=== PATIENT | female | born 1985 ===

== ENCOUNTER 2016-05-27 16:31 | Emergency (ER) | payer MEDICAID ==
[2016-05-27 17:01] VITALS: BMI 28.3
[2016-05-27 17:07] VITALS: TEMP 97.9
--- NOTE | 2016-05-27 17:25 | C.PDOC ---
History Of Present Illness 31 yr old female with PMHx of anxiety and depression, presents to the ER stating 3 days ago she lost her bag and in the bag she had her lexapro and xanax and here requesting refill of her medications. Patient s tates she has not slept in 2-3 days. Patient denies fever, chest pain, SOB, nausea, vomiting, diarrhea, weakness or numbness. Time Seen by Provider: 05/27/16 18:00 Chief Complaint (Nursing): Med Refill History Per: Patient History/Exam Limitations: no limitations Onset/Duration Of Symptoms: Days (3) Current Symptoms Are (Timing): Still Present Recent travel outside of the [place]: No Past Medical History Reviewed: Historical Data, Nursing Documentation, Vital Signs Vital Signs: Last Vital Signs Temp 97.9 F 05/27/16 17:01 Pulse 99 H 05/27/16 17:01 Resp 20 05/27/16 17:01 BP 121/81 05/27/16 17:01 Pulse Ox 99 05/27/16 18:10 - Medical History PMH: Anxiety, Back Problems, Depression Family History: States: No Known Family Hx - Social History Hx Alcohol Use: No Hx Substance Use: No - Immunization History Hx Tetanus Toxoid Vaccination: No Hx Influenza Vaccination: No Hx Pneumococcal Vaccination: No Review Of Systems Except As Marked, All Systems Reviewed And Found Negative. Constitutional: Negative for: Fever Cardiovascular: Negative for: Chest Pain Respiratory: Negative for: Shortness of Breath Gastrointestinal: Negative for: Nausea, Vomiting, Diarrhea Neurological: Negative for: Weakness, Numbness Psych: Positive for: Anxiety, Depression Physical Exam - Physical Exam Appears: Non-toxic, No Acute Distress Skin: Warm, Dry, No Rash Head: Atraumatic, Normacephalic Oral Mucosa: Moist Chest: Symmetrical, No Tenderness Cardiovascular: Rhythm Regular, No Murmur Extremity: Normal ROM, No Swelling Neurological/Psych: Oriented x3, Normal Speech, Normal Motor ED Course And Treatment O2 Sat by Pulse Oximetry: 99 Disposition Counseled Patient/Family Regarding: Diagnosis, Need For Followup - Disposition Disposition: HOME/ ROUTINE Disposition Time: 18:13 Condition: STABLE Instructions: Anxiety (ED) Forms: General Discharge Instructions - POA Present On Arrival: None - Clinical Impression Clinical Impression: Anxiety - Scribe Statement The provider has reviewed the documentation as recorded by the Kathy Olsen Provider Attestation: All medical record entries made by the Kathy were at my direction and personally dictated by me. I have reviewed the chart and agree that the record accurately reflects my personal performance of the history, physical exam, medical decision making, and the department course for this patient. I have also personally directed, reviewed, and agree with the discharge instructions and disposition.
[2016-05-27 18:48] VITALS: BP 124/75; PULSE 89; RESP 18; O2SAT 98
== END 2016-05-27 18:49 | disposition home or self-care (01) ==
LOC: C.ER 16:31
DX: F41.9 Anxiety disorder, unspecified (principal)

== ENCOUNTER 2016-12-21 11:54 | Emergency (ER) | payer MEDICAID ==
[2016-12-21 11:54] VITALS: BMI 28.3
[2016-12-21 12:15] VITALS: O2SAT 100
--- NOTE | 2016-12-21 12:31 | C.PDOC ---
History Of Present Illness 31 year old female presents to the ED for evaluation of left toe injury which she sustained last night. Patient states she accidentally struck her toe on a wooden table last night. Patient complains of pain, bruising and swelling to the area. Patient denies any other associated injuries. CO L 4 TOE INJURY LAST NIGHT. PS ACCID STRUCK TOE ON WOODEN TABLE LAST NIGHT. CO PAIN, BRUISING, SWELL TO AREA. DENIES OTHER ASSOC INJURY EXAM MILD DIST EXT L FOOT +BRUISING W TEND TOP 4TH MT JOINT. NO GROSS DEFORM. REMAINDER FOOT, ANKLE NONTEND SKIN INTACT NO ERYTHEMA Time Seen by Provider: 12/21/16 12:27 Chief Complaint (Nursing): Trauma History Per: Patient History/Exam Limitations: no limitations Onset/Duration Of Symptoms: Hrs Current Symptoms Are (Timing): Still Present Additional History Per: Patient - Ankle/Foot Description Of Injury: Struck With Object Past Medical History Reviewed: Historical Data, Nursing Documentation, Vital Signs Vital Signs: Last Vital Signs Temp 97.9 F 12/21/16 14:08 Pulse 60 12/21/16 14:08 Resp 18 12/21/16 14:08 BP 99/60 L 12/21/16 14:08 Pulse Ox 100 12/21/16 23:39 - Medical History PMH: Anxiety, Back Problems, Depression, Migraine Surgical History: No Surg Hx Family History: States: Unknown Family Hx - Social History Hx Alcohol Use: No Hx Substance Use: No - Immunization History Hx Tetanus Toxoid Vaccination: No Hx Influenza Vaccination: No Hx Pneumococcal Vaccination: No Review Of Systems Skin: Positive for: Other (pain, bruising and swelling to left 4th toe ) Neurological: Negative for: Weakness, Numbness Physical Exam - Physical Exam Appears: Non-toxic, Other (in mild distress ) Skin: Warm, Dry, Ecchymosis (to left 4th toe ), Other (skin intact, no erythema ) Extremity: Normal ROM, Tenderness (to left 4th metatarsal joint ), Capillary Refill (less than 2 seconds ), No Deformity, Other (ankle nontender ) Neurological/Psych: Oriented x3, Normal Speech, Normal Cognition Gait: Steady ED Course And Treatment O2 Sat by Pulse Oximetry: 100 (on RA) Pulse Ox Interpretation: Normal - Other Rad L FOOT X-Ray: Interpreted by Me (4 PROX PHALANGE FX) Progress Note: left foot XR ordered and reviewed. Tylenol PO administered. Progress - Re-Evaluation Re-evaluation Note: 12/21/16 13:11 SP PODIATRY EVAL: SPLINT, DRESSING APPLIED BY DR SAVANNA AGOSTO OUTPT - Data Reviewed Data Reviewed: Diagnostic imaging Disposition Counseled Patient/Family Regarding: Studies Performed, Diagnosis, Need For Followup - Disposition Referrals: [facility] [Outside] [facility] [Outside] Disposition: HOME/ ROUTINE Disposition Time: 13:12 Condition: IMPROVED Additional Instructions: FOLLOW UP WITH PODIATRY INSTRUCTED Instructions: Toe Fracture (ED) Forms: [employer] (Welsh), Work Excuse - Clinical Impression Clinical Impression: Toe fracture - Scribe Statement The provider has reviewed the documentation as recorded by the Scribe (Barbara Rome) Provider Attestation: All medical record entries made by the Scribe were at my direction and personally dictated by me. I have reviewed the chart and agree that the record accurately reflects my personal performance of the history, physical exam, medical decision making, and the department course for this patient. I have also personally directed, reviewed, and agree with the discharge instructions and disposition.
--- NOTE | 2016-12-21 13:03 | CP.PCM.CON ---
History of Present Illness - History of Present Illness History of Present Illness: 31 yo female patient with PMHx of herniated disk and neuropathy presents with a contusion injury to her Left foot 4th digit. She states that she bumped her Left foot against wooden furniture this morning, and is experiencing sharp pain to Left 4th toe especially when bearing weight. She has not tried any medication for the pain. Patient states that she is not working at the moment and will be resting at home. Patient denies of any other pedal complaints. Patient denies of any N/V/F/C or SOB today Review of Systems - Constitutional Constitutional: As Per HPI Past Patient History - Past Social History Smoking Status: Former Smoker - NEUROLOGICAL Hx Migraine: Yes - MUSCULOSKELETAL/RHEUMATOLOGICAL Hx Herniated Disk: Yes - PSYCHIATRIC Hx Anxiety: Yes Hx Depression: Yes Hx Substance Use: No - SURGICAL HISTORY Hx Surgeries: Yes Hx Section: Yes (x1) Other/Comment: Ovaryan cyst removal - ANESTHESIA Hx Anesthesia: Yes Hx Anesthesia Reactions: No Meds Allergies/Adverse Reactions: Allergies Allergy/AdvReac Type Severity Reaction Status Date / Time ketorolac tromethamine Allergy Severe RASH Verified 12/21/16 12:15 [From Toradol] tramadol Allergy Severe ITCHING Verified 12/21/16 12:15 latex Allergy Intermediate Verified 12/21/16 12:15 Physical Exam - Constitutional Appears: Well, Non-toxic, No Acute Distress - Head Exam Head Exam: ATRAUMATIC - Extremities Exam Additional comments: Left lower extremity exam DERM: No open wound noted. No interdigital maceration noted to bilateral. Mild erythema noted. No ecchymosis noted. ORTHO: Pain on palpation to Left foot 4th digit. Patient cannot bear weight secondary to pain VASC: Palpable DP and PT noted 2/4 bilaterally. 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 less than 3 seconds to all digits NEURO: Gross sensation intact - Neurological Exam Neurological exam: Alert, Oriented x3 - Psychiatric Exam Psychiatric exam: Normal Affect, Normal Mood - Skin Skin Exam: Normal Color, Warm Results - Vital Signs Recent Vital Signs: Last Vital Signs Temp 97.2 F L 12/21/16 12:10 Pulse 84 12/21/16 12:10 Resp 20 12/21/16 12:10 BP 95/60 L 12/21/16 12:10 Pulse Ox 100 12/21/16 12:50 Assessment & Plan - Assessment and Plan (Free Text) Assessment: 31 yo female patient presents with Left foot 4th digit proximal phalanx fracture Plan: Patient was seen, evaluated and treated in ED discussed in detail with attending DR. Dalal Xray of Left foot reveals closed, non-displaced, complete fracture of 4th digit proximal phalanx Left foot dressed with amairani splinting 4th digit with 3rd digit Patient advised to keep the dressing clean dry and intact until her clinic visit Patient was given surgical shoe, advised to walk to heel as tolerated Patient was advised to follow up at [facility] podiatry clinic with Dr. Dalal Patient was given Rx for Xray to take at the time of visit to clinic
[2016-12-21 14:09] VITALS: BP 99/60; PULSE 60; RESP 18; TEMP 97.9
--- NOTE | 2016-12-21 15:54 | RAD ---
PROCEDURE: Left Foot Radiographs. HISTORY: TRAUMA COMPARISON: None. FINDINGS: BONES: Oblique nondisplaced fracture of the 4th proximal phalangeal diaphysis. No additional fracture appreciated. There is mild comminution. No other fracture is appreciated. JOINTS: Normal. SOFT TISSUES: Normal. OTHER FINDINGS: None. IMPRESSION: Comminuted nondisplaced oblique fracture 4th proximal phalanx.
== END 2016-12-21 14:09 | disposition home or self-care (01) ==
LOC: C.ER 11:54
DX: S92.515A Nondisplaced fracture of proximal phalanx of left lesser toe(s), initial encounter for closed fracture (principal); W22.03XA Walked into furniture, initial encounter; Z87.891 Personal history of nicotine dependence